=== PATIENT | male | born 1995 | race African-American/Black ===

== ENCOUNTER 2018-12-27 12:50 | Emergency (ER) | payer OTHER, SELFPAY ==
[2018-12-27 12:59] VITALS: BP 143/69; PULSE 90; RESP 18; TEMP 36.4; O2SAT 97
--- NOTE | 2018-12-27 13:05 | DI.RAD.S_ITS ---
PROCEDURE: XR FINGER LT MIN 2V INDICATIONS: table saw to 2nd digit TECHNIQUE: AP hand, 2 views of the index finger(s) acquired. COMPARISON: None. FINDINGS: Bones: There is a comminuted a fracture identified involving the distal phalanx of the index finger that extends into the distal interphalangeal joint. No additional fractures are present. No suspicious osseous lesions are identified. Soft tissues: No suspicious soft tissue calcifications. Soft tissue laceration is evident involving the index finger. No metallic foreign bodies are evident. However, there is an ovoid area of increased density identified along the radial aspect of the tuft of distal phalanx, which could represent a bone fragment versus a foreign body. IMPRESSION: 1. Comminuted intra-articular fracture of the distal phalanx of the left index finger. 2. Possible debris at the site of the patient's laceration involving the index finger. No metallic foreign bodies. Dictated by: Jose Juan Edwards M.D. on 12/27/2018 at 12:29 Approved by: Jose Juan Edwards M.D. on 12/27/2018 at 12:31
--- NOTE | 2018-12-27 15:03 | ED.UPPEXIN ---
HPI - Extremity Injury (Upper) General Chief Complaint: Extremity Injury, Upper Stated Complaint: Finger cut open by saw Time Seen by Provider: 12/27/18 13:58 Source: patient Mode of arrival: ambulatory Limitations: no limitations History of Present Illness HPI narrative: Patient is a 23-year-old male who presents with left 2nd finger injury with a table saw. It happened just prior to arrival. He denies numbness or tingling MD complaint: injury to: left Onset (ago): minute(s) Related Data Previous Rx's Medication Instructions Recorded cephalexin [Keflex] 500 mg PO TID #21 cap 12/27/18 Allergies Allergy/AdvReac Type Severity Reaction Status Date / Time No Known Drug Allergies Allergy Unverified 02/16/18 14:56 Review of Systems Review of Systems GENERAL: Denies chills,fever HEENT: Denies throat pain RESPIRATORY: Denies dyspnea, cough, wheezing CARDIOVASCULAR: Denies chest pain, palpitations GASTROINTESTINAL: Denies nausea, vomiting MUSCULOSKELETAL: Denies extremity pain, injury SKIN: Laceration of the finger NEUROLOGIC: Denies weakness, dizziness, headache, numbness 8 point review of systems is negative except for those stated above and HPI PFSH Social History Smoking Status: Former smoker alcohol intake: current Social History Smoking Status: Former smoker alcohol intake: current Exam Initial Vital Signs Initial Vital Signs: Vital Signs Temperature 97.5 F L 12/27/18 12:59 Pulse Rate 90 12/27/18 12:59 Respiratory Rate 18 12/27/18 12:59 Blood Pressure 143/69 H 12/27/18 12:59 Pulse Oximetry 97 12/27/18 12:59 GENERAL: Well-appearing, well-nourished and in no acute distress. CARDIOVASCULAR: peripheral pulses in tact, cap refill <2 sec RESPIRATORY: No respiratory distress, speaks in full sentences without difficulty EXTREMITIES: Normal range of motion, no clubbing or edema. Neurovascularly intact NEUROLOGICAL: Cranial nerves II through XII grossly intact. Normal gait and speech. SKIN: Warm, dry, no petechiae, no rashes or lesions. Skin Fingers- Fingertip Back: 1. laceration Extrem Fingers-Fingertip Front: 1. Procedures Laceration Repair Laceration 1: Site: hand Side (If applicable): left (2nd finger) Size (cm): 4 Description: irregular Depth: simple, single layer Local Anesthetic: lidocaine 1% (digital block) Amount of anesthesia used (mL): 10 Pre-repair: wound explored, irrigated extensively and deep structures intact Skin layer closed with: nylon Size (cm): 5-0 Number of sutures: 6 Technique: simple, interrupted Nerve Block Nerve Block 1: Time out performed: Yes Local Anesthetic: lidocaine 1% and with bicarb Side: left Nerve Blocks: digital Procedure Successful: Yes Patient Tolerated Procedure: Well Complications: none Course Orders Ordered: ED Orders 12/27/18 13:05 XR finger LT min 2V Stat Vital Signs - 8 hr 12/27/18 12:59 12/27/18 15:33 Temperature 97.5 F L Pulse Rate 90 91 H Respiratory Rate 18 18 Blood Pressure 143/69 H 128/59 L Pulse Oximetry 97 98 MDM - Extremity Injury (Upper) Imaging Data Left index finger x-ray: Radiologist's impression: PROCEDURE: XR FINGER LT MIN 2V INDICATIONS: table saw to 2nd digit TECHNIQUE: AP hand, 2 views of the index finger(s) acquired. COMPARISON: None. FINDINGS: Bones: There is a comminuted a fracture identified involving the distal phalanx of the index finger that extends into the distal interphalangeal joint. No additional fractures are present. No suspicious osseous lesions are identified. Soft tissues: No suspicious soft tissue calcifications. Soft tissue laceration is evident involving the index finger. No metallic foreign bodies are evident. However, there is an ovoid area of increased density identified along the radial aspect of the tuft of distal phalanx, which could represent a bone fragment versus a foreign body. IMPRESSION: 1. Comminuted intra-articular fracture of the distal phalanx of the left index finger. 2. Possible debris at the site of the patient's laceration involving the index finger. No metallic foreign bodies. Dictated by: Jose Juan Edwards M.D. on 12/27/2018 at 12:29 MDM Narrative Medical decision making narrative: I spoke with Orthopedics on-call Dr. Sibley. Who agrees with antibiotics and outpatient follow-up. A finger actually came together quite nicely. He is placed in a splint and 0 form dressing Discharge Plan Departure Patient Disposition: Home Clinical Impression: Finger fracture, left Qualifiers: Encounter type: initial encounter Finger: index finger Fracture type: open Phalanx: distal Fracture alignment: nondisplaced Qualified Code(s): S62.661B - Nondisplaced fracture of distal phalanx of left index finger, initial encounter for open fracture Discharge Date/Time: 12/27/18 15:34 Interventions: ED Discharge Assessment Last Done: 12/27/18 15:33 Instructions: DI for Laceration Repair -- Complex, DI for Fracture Activity Restrictions/Additional Instructions: *You have been diagnosed with left index finger fracture and laceration *What to do: Change dressing in 24 hours. Keep clean and dry with soap and water. Sutures will need to be removed in about 10 days. Apply Neosporin to suture sites once to twice daily. *Continue to take medications as directed Keflex 500 mg 3 times a day--sent to [facility] in [place] Take Motrin 800 mg every 8 hours as needed for pain *Follow up with your primary care provider in 2-3 days, call Orthopedics tomorrow to schedule follow-up appointment this week *Return to ER if you should have redness, pus swelling, increased pain or any new, worsening or concerning symptoms Prescriptions: New cephalexin [Keflex] 500 mg capsule 500 mg PO TID Qty: 21 RF: 0 Referrals: [facility] [Provider Group] Primitivo Parson MD [Primary Care Provider] -
--- NOTE | 2018-12-27 15:31 | PC.NURSE ---
Splinted left hand 2nd digit with finger splint after wrapping it with xerofoam. Then secured it with coban. Pt teaching with regards to infection, care, and swelling reasons to return more urgently.
[2018-12-27 15:33] VITALS: BP 128/59; PULSE 91; RESP 18; O2SAT 98
== END 2018-12-27 15:34 | disposition home or self-care (01) ==
PROVIDERS: Emergency Provider Emergency Medicine; PCP Family Medicine
DX: S62.661B Nondisplaced fracture of distal phalanx of left index finger, initial encounter for open fracture (principal); W31.2XXA Contact with powered woodworking and forming machines, initial encounter
CPT/HCPCS: 12002; 64450; 73140; 99282; 99283

== ENCOUNTER → 2020-12-14 12:08 | Outpatient (CLI) | payer OTHER, SELFPAY ==
[2020-12-14] MEDS: COVID-19 VACC #1, MRNA(MOD) 100 MCG/0.5 ML VIAL IM (12:14)
== END ==
PROVIDERS: PCP Family Medicine; Visit Provider Internal Medicine
DX: Z23 Encounter for immunization (principal)
CPT/HCPCS: 0011A; 91301

== ENCOUNTER → 2021-01-19 11:00 | Outpatient (CLI) | payer OTHER, SELFPAY ==
[2021-01-19] MEDS: COVID-19 VACC #2, MRNA(MOD) 100 MCG/0.5 ML VIAL IM (11:04)
== END ==
PROVIDERS: PCP Family Medicine; Visit Provider Internal Medicine
DX: Z23 Encounter for immunization (principal)
CPT/HCPCS: 0012A; 91301

== ENCOUNTER → 2021-07-16 11:23 | Outpatient (CLI) | payer OTHER, SELFPAY ==
--- NOTE | 2021-07-16 12:05 | DI.RAD.S_ITS ---
PROCEDURE: XR LUMBAR SPINE 2-3V INDICATIONS: back pain since fall 07/11/21 TECHNIQUE: 3 views of the lumbar spine were acquired. COMPARISON: [facility], , -SPINE 2-3 VIEWS, 04/29/2011, 11:00. FINDINGS: Bones: 5 [id number] vertebrae are present. There is normal bony alignment. No vertebral body compression fractures. No suspicious bony lesions. Mild spurring at T12-L1, L1-L2 and L2-L3. Soft tissues: Overlying bowel gas pattern is normal. No suspicious soft tissue calcifications. IMPRESSION: No osseous acute abnormalities. Dictated by: Marjan Davidson M.D. on 07/16/2021 at 13:51 Approved by: Marjan Davidson M.D. on 07/16/2021 at 13:52
== END ==
PROVIDERS: PCP Family Medicine; Referring Provider Nurse Practitioner Family; Visit Provider Nurse Practitioner Family
DX: S39.012A Strain of muscle, fascia and tendon of lower back, initial encounter (principal); W19.XXXA Unspecified fall, initial encounter
CPT/HCPCS: 72100